=== PATIENT | male | born 1950 | race Caucasian/White ===

== ENCOUNTER 2024-07-07 13:45 | Emergency (ER) | payer MEDICARE, BC, SELFPAY ==
[2024-07-07] VITALS (12 sets, daily range): BP systolic 110–158; BP diastolic 65–84; PULSE 99–121; RESP 16–23; TEMP 36.5–36.9; O2SAT 94–97; BMI 23.6
--- NOTE | 2024-07-07 14:02 | EKG_ITS ---
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
[2024-07-07 14:20] LABS: Add Manual Diff / Slide Review NO; Basophils Absolute Auto 0 /uL (0-100); Basophils Percent Auto 0.1 % (0-2); Eosinophils Absolute Auto 0 /uL (0-450); Eosinophils Percent Auto 0.1 % (2-4); Hematocrit 42.4 % (41-53); Hemoglobin 14.2 g/dL (13.5-17.5); Lymphocytes Absolute Auto 500 /uL (1100-4500); Lymphocytes Percent Auto 3.6 % (25-40); Mean Corpuscular HGB Conc 33.6 % (30-36); Mean Corpuscular Hemoglobin 29.7 PG (26-34); Mean Corpuscular Volume 88.7 fL (80-100); Monocytes Absolute Auto 300 /uL (0-900); Monocytes Percent Auto 2.2 % (3-14); Neutrophils Absolute Auto 12700 /uL (1500-7000); Platelet Count 251 X10^3/uL (150-400); Red Blood Cell Count 4.79 X10^6/uL (4.5-5.9); Red Cell Distribution Width 13.8 % (11.6-14.8); White Blood Cell Count 13.5 X10^3/uL (4.5-11.0)
[2024-07-07 14:29] LABS: Alanine Aminotransferase 16 IU/L (<50); Albumin 4.1 g/dL (3.5-5.0); Albumin Globulin Ratio 1.5 (1.0-2.8); Alkaline Phosphatase 87 U/L (38-126); Aspartate Aminotransferase 28 IU/L (17-59); BUN Creatinine Ratio 21.7 (6-22); Bilirubin Total 1.1 mg/dL (0.2-1.3); Blood Urea Nitrogen 47 mg/dL (9-20); Calcium 8.8 mg/dL (8.4-10.2); Carbon Dioxide 21 mmol/L (22-32); Chloride 103 mmol/L (98-107); Estimated Glomerular Filt Rate 31 mL/min (>60); Globulin 2.8 g/dL (1.7-4.1); Glucose 141 mg/dL (70-99); HEMOLYSIS < 15 (0-50); Lipase 14 U/L (23-300); Sodium 136 mmol/L (137-145); Total Protein 6.9 g/dL (6.3-8.2)
--- NOTE | 2024-07-07 18:12 | ED_ITS ---
HPI - Abdominal Pain General Chief Complaint: Abdominal Pain Stated Complaint: Upper stomach pain x 3 days Time Seen by Provider: 07/07/24 18:12 Source: patient, RN notes reviewed and old records reviewed Mode of arrival: Ambulatory Limitations: no limitations History of Present Illness HPI narrative: 74-year-old male history of hypertension complaint of abdominal pain and nausea vomiting sweats chills and low energy. Patient states symptoms started Thursday with nausea and vomiting noted a lot of gas pain sort of mid abdomen. Denied any back or flank pain at any point. She was has a little bit of discomfort but defers anything for pain. No fevers. No chest pain or shortness of breath. He was continued to have some nausea and dry heaves today. He states he was never had any diarrhea. Last bowel movement has not been for 2 or 3 days. Did pass flatus today. Denies any new swelling in extremities. No chest pain, no new shortness of breath. Patient states history of hypertension on amlodipine, valsartan, terazosin, mirtazapine and Flomax. Has had prior hernia repair and had some nodules removed in the past. Patient is unaware of any history of CKD, patient has a history of bowel blockage in 2023 was treated with a laxative was hospitalized did not require other interventions. No known drug allergies. No tobacco, 5 alcoholic drinks weekly, no recreational drugs. Patient lives in [place]. Related Data Allergies Allergy/AdvReac Type Severity Reaction Status Date / Time No Known Drug Allergies Allergy Verified 07/07/24 14:00 Review of Systems Review of Systems ROS Unobtainable: All systems reviewed & are unremarkable except as noted in HPI and below Patient History Social History Smoking Status: Former smoker Smoking Status: Former smoker tobacco type: cigarettes Alcohol type: beer and wine Exam Narrative Exam Narrative: GENERAL: Alert and oriented x three, male in mild distress HEENT: Head normocephalic, atraumatic, EOMI, pupils reactive, face symmetric, moist mucous membranes NECK: Supple, full range of motion CARDIOVASCULAR: Regular rate and rhythm without murmurs, rubs or gallops. No edema. RESPIRATORY: Breath sounds equal bilaterally, no wheezes rales or rhonchi. No tachypnea accessory muscle use. ABDOMEN: Soft, mild left lower quadrant tenderness. Nondistended. Hypoactive bowel sounds all 4 quadrants. No guarding or rebound, rigidity, no mass : No CVA tenderness EXTREMITIES: Normal range of motion, no clubbing or edema. Neurovascularly intact NEUROLOGICAL: Cranial nerves II through XII grossly intact. Moving all extremities SKIN: Warm, dry, no petechiae, no rashes or lesions. Initial Vital Signs Initial Vital Signs: Vital Signs Temperature 97.7 F 07/07/24 13:51 Pulse Rate 121 H 07/07/24 13:51 Respiratory Rate 16 07/07/24 13:51 Blood Pressure 110/65 07/07/24 13:51 Pulse Oximetry 97 07/07/24 13:51 Oxygen Delivery Method Room Air 07/07/24 13:51 Course Orders Ordered: ED Orders 07/07/24 19:27 Urine Culture Stat Urine Microscopic Stat Discontinued Medications Sodium Chloride (Normal Saline 0.9%) 1,000 mls @ 1,000 mls/hr IV BOLUS ONE Stop: 07/07/24 19:23 Last Infusion: 07/07/24 20:23 Dose: 0 mls/hr Documented By: Admin: 07/07/24 19:40 Dose: 1,000 mls/hr Documented By: PEDRO Ondansetron HCl (Ondansetron 4 Mg/2 Ml Inj) 4 mg IV NOW PRN PRN Reason: Nausea And Vomiting Ondansetron HCl (Ondansetron 4 Mg Odt) 4 mg PO NOW PRN PRN Reason: Nausea And Vomiting Ondansetron HCl (Ondansetron 4 Mg/2 Ml Inj) 4 mg IV NOW ONE Stop: 07/07/24 18:25 Last Admin: 07/07/24 19:40 Dose: 4 mg Documented By: PEDRO Ondansetron HCl (Ondansetron 4 Mg Odt Prepack) 1 bottle MISC DIRECTED ONE Stop: 07/07/24 20:21 Last Admin: 07/07/24 20:23 Dose: 1 bottle Documented By: PEDRO Vital Signs Vital signs: Vital Signs - 8 hr 07/07/24 20:00 07/07/24 20:00 Pulse Rate 99 H Respiratory Rate 23 Blood Pressure 150/77 H Pulse Oximetry 95 Oxygen Delivery Method Room Air MDM - Abdominal Pain Lab Data 07/07/24 14:05 07/07/24 14:05 Labs: Lab Results 07/07/24 07/07/24 Range/Units 14:05 19:27 WBC 13.5 H (4.5-11.0) X10^3/uL RBC 4.79 (4.5-5.9) X10^6/uL Hgb 14.2 (13.5-17.5) g/dL Hct 42.4 (41-53) % MCV 88.7 (80-100) fL MCH 29.7 (26-34) PG MCHC 33.6 (30-36) % RDW 13.8 (11.6-14.8) % Plt Count 251 (150-400) X10^3/uL Neut % (Auto) 94.0 H (50-75) % Lymph % (Auto) 3.6 L (25-40) % [place] % (Auto) 2.2 L (3-14) % Eos % (Auto) 0.1 L (2-4) % Baso % (Auto) 0.1 (0-2) % Neut # (Auto) 37751 H (5237-9589) /uL Lymph # (Auto) 500 L (4277-9357) /uL [place] # (Auto) 300 (0-900) /uL Eos # (Auto) 0 (0-450) /uL Baso # (Auto) 0 (0-100) /uL Sodium 136 L (137-145) mmol/L Potassium 4.0 (3.4-5.1) mmol/L Chloride 103 (98-107) mmol/L Carbon Dioxide 21 L (22-32) mmol/L BUN 47 H (9-20) mg/dL Creatinine 2.17 H (0.66-1.25) mg/dL Estimated GFR 31 L (>60) mL/min BUN/Creatinine Ratio 21.7 (6-22) Glucose 141 H (70-99) mg/dL Calcium 8.8 (8.4-10.2) mg/dL Total Bilirubin 1.1 (0.2-1.3) mg/dL AST 28 (17-59) IU/L ALT 16 (<50) IU/L Alkaline Phosphatase 87 (38-126) U/L Total Protein 6.9 (6.3-8.2) g/dL Albumin 4.1 (3.5-5.0) g/dL Globulin 2.8 (1.7-4.1) g/dL Albumin/Globulin Ratio 1.5 (1.0-2.8) Lipase 14 L (23-300) U/L Urine RBC 1-5/hpf (0-5/HPF) Urine WBC 5-10/hpf H (0-5/HPF) Ur Squamous Epith Cells 0-1 /hpf (0-5/HPF) Urine Bacteria Few (2-10) H (None) WBC Casts 0-1/lpf (None) Ur Culture Indicated? TNP Vol Urine Centrifuged 10ml (spun) Point of care testing: Urine Dip Bedside Urine Glucose Negative Bedside Urine Bilirubin - Negative Bedside Urine Ketone - Negative Urine Specific [place] 1.015 Bedside Urine Occult Blood +/- Bedside Urine pH 6.0 Bedside Urine Protein +/- 15 Bedside Urine Urobilinogen - Negative Bedside Urine Nitrite - Negative Bedside Urine Leukocytes - Negative Esterase ECG Data Attestation: I personally reviewed and interpreted this ECG as follows: Prior ECG tracings: not available for review Interpretation: Sinus tachycardia rate of 102 NE 182 QRS of 100 QTC 461. Incomplete right bundle, left anterior fascicular block. No priors for comparison. No prior for comparison. MDM Narrative Medical decision making narrative: Labs show white count of 13.5, hemoglobin of 14 platelets of 251, creatinine is 2.17 with BUN of 47, sodium 136, CO2 of 21, potassium and chloride are normal at 4 and 103 glucose 141, LFTs are negative lipase is 14. Point of care urine blood, protein, no nitrates or leuks. 1-5 RBCs 5-10 WBCs 1 squamous few bacteria. One WBC cast. CT KUB no obstructing stones or hydronephrosis diffusely scattered fluid-filled loops of nondilated small bowel likely related enteritis either infectious or inflammatory in etiology no evidence for small bowel obstruction or other chronic/nonacute changes. Fat containing umbilical hernia without acute inflammation. Patient has a trace right pleural effusion, small hiatal hernia, trace pericardial effusion likely physiologic. Patient received fluids, Zofran 74-year-old male with complaint mid abdominal pain for the past 3 days nausea or vomiting no bowel movement for several days. Did see has passed gas does not have a history of a bowel obstruction year ago. No known history of chronic kidney disease per patient states labs rechecked possibly in the last year he lives in [place] do not have access to these. He was on multiple antihypertensives but likely has some fluid loss from his nausea or vomiting. Workup shows no acute kidney injury no signs of bowel obstruction discussed with patient we would like to keep for observation and recheck of his creatinine as it is unclear if this is a new JACQUI, likely secondary to dehydration. Patient elects to discharge home rather than stay for observation. Discussed he needs to have short term follow up to recheck his creatinine we will give a short course of oral antiemetic patient has been tolerating orals here in the department. He received about half L of saline but did not complete his fluids. Patient is aware of my concern for potential renal failure. Discharge Plan Departure Patient Disposition: Home Clinical Impression: JACQUI (acute kidney injury), Nausea & vomiting Instructions: DI for Acute Kidney Injury Activity Restrictions/Additional Instructions: You need to follow up to have your creatinine or renal function rechecked shortly with your physician in [place]. Your creatinine today was elevated at 2.17 with a GFR of 31. Share these numbers with your physician. Your electrolytes and liver enzymes were all normal. Your urine did show a small amount of blood but no signs of infection. You do have a urine culture pending. Your CT imaging showed unremarkable kidneys. As you have elected to return home rather than stay overnight in the hospital if you have persistent vomiting or other signs of dehydration you should return for re-evaluation to check for renal failure. Take Zofran 1 tablet every 6 hours as needed for nausea. It was important that you continue to hydrate. Please return for fevers, new abdominal back or flank pain, persistent vomiting, black or bloody stools, if you are not have any bowel movements or passing gas for the next 24 hours, lightheadedness or passing out or other new or concerning changes. Stand Alone Forms: Patient Portal/API/Survey
--- NOTE | 2024-07-07 18:24 | DI.CT.S_ITS ---
PROCEDURE: CT KIDNEY URETER BLADDER (KUB) INDICATIONS: abd pain, n/v, elevated cr, hx SBO TECHNIQUE: Axial sections were acquired from the lung bases to the pubic symphysis. Coronal and sagittal reformats were performed. For radiation dose reduction, the following was used: automated exposure control, adjustment of mA and/or kV according to patient size. COMPARISON: None. FINDINGS: Image quality: Diagnostic. Lower Chest: Trace right pleural effusion. Bibasilar atelectasis. Small hiatal hernia. Heart size is normal. Trace pericardial effusion, likely physiologic. URINARY: Right Kidney: No stones or hydronephrosis. Right Ureter: Right ureter appears non-dilated throughout its expected course without ureteral stones visualized. Left Kidney: No stones or hydronephrosis. Left Ureter: Left ureter appears non-dilated throughout its expected course without ureteral stones visualized. Bladder: Normal wall thickness. No stones. ABDOMEN: Liver: No contour-deforming solid mass. Gallbladder: No radiopaque gallstones or wall thickening. Biliary ducts: No biliary dilation. Pancreas: No ductal dilation. Spleen: Size is within normal limits. Adrenal Glands: No adrenal nodules. Stomach and Bowel: Normal colonic caliber, without significant wall thickening. No evidence for small bowel obstruction or associated inflammatory changes. Diffusely scattered fluid fluid loops of nondilated small bowel. Peritoneum: No abnormal intraperitoneal fluid. No free air. Ventral Wall: There is a fat-containing umbilical hernia without acute inflammation. Abdominal Nodes: No enlarged retroperitoneal or mesenteric lymph nodes. Vessels: Aorta and inferior vena cava are normal in size. PELVIS: Pelvic Organs: Mild prostatomegaly. Pelvic Nodes: Unremarkable. Miscellaneous: No inguinal hernias are seen. Bones: Unremarkable. No acute vertebral body compression fractures. Multilevel spondylitic changes throughout the imaged spine. No suspicious osseous lesions. IMPRESSION: No obstructing stones or hydronephrosis. Diffusely scattered fluid-filled loops of non dilated small bowel likely related to enteritis either infectious or inflammatory in etiology. No evidence for small bowel obstruction. Other chronic/non-acute findings as above. Dictated by: Scar Mahoney M.D. on 07/07/2024 at 19:51 Approved by: Scar Mahoney M.D. on 07/07/2024 at 19:55
[2024-07-07] MEDS: ONDANSETRON 4 MG/2 ML INJ IV (19:40)
[2024-07-07] MEDS: SODIUM CHLORIDE 0.9% 1,000 ML 1000 ML IV (19:40)
[2024-07-07 19:48] LABS: Bacteria Urine Few (2-10); Urine Volume 10mL (spun); WBC Urine 5-10/HPF (0-5/HPF)
[2024-07-07 19:49] LABS: Squamous Epithelial Cell Urine 0-1 /HPF (0-5/HPF); White Blood Cell Casts Urine 0-1/LPF
[2024-07-07 19:50] LABS: RBC Urine 1-5/HPF (0-5/HPF)
[2024-07-07] MEDS: ONDANSETRON 4 MG ODT PREPACK 1 BOTTLE MISC (20:23)
== END 2024-07-07 20:35 | disposition home or self-care (01) ==
PROVIDERS: Emergency Medicine; Emergency Provider Emergency Medicine
DX: N17.9 Acute kidney failure, unspecified (principal); R11.2 Nausea with vomiting, unspecified
CPT/HCPCS: 36415; 74176; 80053; 81003; 81015; 83690; 85025; 87086; 93005; 96361; 96374; 99284; J2405